=== PATIENT | female | born 1950 | race American Indian/Alaskan Native ===

== ENCOUNTER 2017-05-21 10:32 | Outpatient (CLI) | payer OTHER ==
--- NOTE | 2017-05-23 08:53 | Mammography Report ---
BILATERAL DIGITAL SCREENING MAMMOGRAM with CAD: 05/21/17 10:32:00 CLINICAL: Routine screening. COMPARISON:None. Although she stated that she had a mammogram at [facility], we do not have her in our system. FINDINGS: The breasts are mostly fatty.A 1 cm circumscribed oval left upper outer mass with the biopsy clip. It has a slightly irregular contour. No other mass, architectural distortion or suspicious calcifications. The right breast is negative. IMPRESSION: A probably benign 1 cm left breast mass with the biopsy clip. This there are no comparison studies, recommend six month followup left mammogram to confirm stability of the mass. A followup may be indicated if a comparison mammogram is available and confirms stability. BI-RADS CATEGORY: 3--Probably Benign RECOMMENDATION: Six month followup left mammogram. COMMENT: Patient follow-up letters are generated by our [employer] application.
== END 2017-05-21 10:33 | disposition home or self-care (01) ==
LOC: SPVWC 10:32
PROVIDERS: ATTEND Internal Medicine
DX: Z12.31 Encounter for screening mammogram for malignant neoplasm of breast (principal)
CPT/HCPCS: 77067

== ENCOUNTER 2017-12-06 16:55 | Outpatient (CLI) | payer OTHER ==
--- NOTE | 2017-12-06 18:16 | XRay Report ---
FINAL REPORT EXAM: XR CHEST ROUTINE 2V HISTORY: PNEUMONIA DUE TO OTHER SPECIFIED BACTERIA TECHNIQUE: 2 view examination of the chest PRIORS: None FINDINGS: There is no visible pulmonary consolidation, pleural effusion, or pneumothorax. Cardiac silhouette size is normal without vascular congestion. No visible acute displaced fracture in the regional skeleton. IMPRESSION: No evidence of acute cardiopulmonary disease
== END 2017-12-06 16:56 | disposition home or self-care (01) ==
LOC: XRAY 16:55
PROVIDERS: ATTEND Internal Medicine
DX: J15.8 Pneumonia due to other specified bacteria (principal)
CPT/HCPCS: 71046

== ENCOUNTER 2020-02-11 12:47 | Outpatient (CLI) | payer OTHER ==
--- NOTE | 2020-02-12 08:51 | Mammography Report ---
DIGITAL SCREENING MAMMOGRAM WITH CAD, 02/11/2020 INDICATION: Routine screening mammography. TECHNIQUE: Digital bilateral 2D mammography was obtained in the craniocaudal and mediolateral obliq ue projections. This examination was interpreted with the benefit of Computer-Aided Detection analysi s. COMPARISON: 05/21/2017. FINDINGS: Breast Density: There are scattered areas of fibroglandular density. There is no evidence of dominant mass, suspicious calcifications or architectural distortion in eithe r breast. IMPRESSION: Follow up recommendation: Routine yearly BI-RADS Category 1: Negative. A "normal" or negative report should not discourage follow up or biopsy of a clinically significant f inding. A written summary of these findings will be mailed to the patient. The patient will be entered into a mammography reporting system which will generate a reminder letter for the patient's next appointmen t at the appropriate interval. The [employer] recommends yearly mammograms starting at age 40 and continuing as l quan as a woman is in good health. Breast MRI is recommended for women with an approximate 20-25% or greater lifetime risk of breast cancer, including women with a strong family history of breast or ova timbo cancer or who have been treated for Hodgkin's disease. Signer Name: Telly Colindres MD Signed: 02/12/2020 8:46 AM Workstation Name: [id number]
== END 2020-02-11 12:48 | disposition home or self-care (01) ==
LOC: SPVWC 12:47
PROVIDERS: ATTEND Internal Medicine
DX: Z12.31 Encounter for screening mammogram for malignant neoplasm of breast (principal); N64.89 Other specified disorders of breast
CPT/HCPCS: 77067

== ENCOUNTER 2021-02-23 14:16 | Outpatient (CLI) | payer MEDICARE ==
--- NOTE | 2021-02-24 12:01 | Mammography Report ---
DIGITAL SCREENING MAMMOGRAM WITH CAD, 02/23/2021 CLINICAL INFORMATION / INDICATION: Routine screening mammography. TECHNIQUE: Digital bilateral 2D mammography was obtained in the craniocaudal and mediolateral obliqu e projections. This examination was interpreted with the benefit of Computer-Aided Detection analysis . COMPARISON: 02/11/2020, 05/21/2017 FINDINGS: Breast Density: There are scattered areas of fibroglandular density. No dominant mass, suspicious calcifications, or architectural distortion in either breast. Stable left benign breast nodule with associated biopsy clip. Overall, no interval change. IMPRESSION: No mammographic evidence of malignancy. Follow up recommendation: Routine yearly BI-RADS Category 2: Benign. A "normal" or negative report should not discourage follow up or biopsy of a clinically significant f inding. A written summary of these findings will be mailed to the patient. The patient will be entered into a mammography reporting system which will generate a reminder letter for the patient's next appointmen t at the appropriate interval. The [employer] recommends yearly mammograms starting at age 40 and continuing as l quan as a woman is in good health. Breast MRI is recommended for women with an approximate 20-25% or greater lifetime risk of breast cancer, including women with a strong family history of breast or ova timbo cancer or who have been treated for Hodgkin's disease. Signer Name: Malinda Eng MD Signed: 02/24/2021 11:56 AM Workstation Name: [employer]
== END 2021-02-23 14:17 | disposition home or self-care (01) ==
LOC: SPVWC 14:16
PROVIDERS: ATTEND Internal Medicine
DX: Z12.31 Encounter for screening mammogram for malignant neoplasm of breast (principal)
CPT/HCPCS: 77067